=== PATIENT | female | born 1970 | race Caucasian/White ===

== ENCOUNTER 2022-05-02 01:06 | Emergency (ER) | payer SELFPAY ==
[2022-05-02 01:36] LABS: #Basophils 0.1 thou/uL (0.0-0.2); #Eosinphils 0.2 thou/uL (0.0-0.7); #Lymphocytes 2.2 thou/uL (1.20-3.40); #Monocytes 0.9 thou/uL (0.11-0.59); %Basophils 0.6 % (0.0-1.0); %Eosinophils 1.5 % (0.0-10.0); %Lymphocytes 21.5 % (21.0-51.0); %Monocytes 8.5 % (0.0-10.0); %Neutrophils 67.9 % (42.0-75.0); Hemoglobin 16.1 g/dL (12.0-16.0); Mean Corpuscular HGB CONC 33.5 g/dL (32.0-36.0); Mean Corpuscular Hemoglobin 28.9 pg (27.0-31.0); Mean Corpuscular Volume 86.3 fL (78.0-98.0); Mean Platelet Volume 7.1 fL (7.4-10.4); Platelet Count 320 thou/uL (130-400); RBC Distribution Width 12.9 % (11.5-14.5); Red Blood Cell (RBC) Count 5.58 mill/uL (4.20-5.40); White Blood Cell (WBC) Count 10.3 thou/uL (4.8-10.8)
[2022-05-02 01:57] LABS: ALT (SGPT) 24 U/L (8-55); AST (SGOT) 21 U/L (5-34); Albumin 4.9 g/dL (3.5-5.0); Alkaline Phosphatase 65 U/L (40-110); Anion Gap 14 mmol/L (10-20); BUN (Urea Nitrogen) 27 mg/dL (9.8-20.1); Bilirubin, Total 0.4 mg/dL (0.2-1.2); Calc. Creatinine Clearance 0 mL/min (70-130); Carbon Dioxide 26 mmol/L (22-29); Chloride 102 mmol/L (98-107); Estimated GFR 38; Globulin 3.3 g/dL (2.4-3.5); Glucose 108 mg/dL (70-105); Potassium 3.3 mmol/L (3.5-5.1); Protein, Total 8.2 g/dL (6.0-8.3); Sodium 139 mmol/L (136-145)
[2022-05-02] MEDS ORDERED: Acetaminophen 500 MG TAB ONE (04:25)
[2022-05-02] MEDS ORDERED: Aspirin Chewable 81 MG TAB ONE (04:25)
[2022-05-02 05:05] LABS: Troponin I 0.019 ng/mL (< 0.028)
== END 2022-05-02 05:50 | disposition home or self-care (01) ==
LOC: ERS 01:06
DX: R07.89 Other chest pain (principal); R11.0 Nausea; I10 Essential (primary) hypertension; Z79.899 Other long term (current) drug therapy
CPT/HCPCS: 36415; 71045; 80053; 84484; 85025; 93005

== ENCOUNTER 2023-07-14 00:08 | Observation (INO) | payer SELFPAY ==
[2023-07-14] MEDS ORDERED: Morphine 4 MG/ML VIAL ONE ×2 (00:44→01:44)
[2023-07-14] MEDS ORDERED: Ondansetron PF 4 MG/2 ML Vial ONE ×2 (00:44→11:09)
[2023-07-14 00:45] LABS: #Basophils 0.1 thou/uL (0.0-0.2); #Eosinphils 0.3 thou/uL (0.0-0.7); #Monocytes 0.8 thou/uL (0.11-0.59); #Neutrophils 5.1 thou/uL (1.40-6.50); %Eosinophils 2.9 % (0.0-10.0); %Monocytes 8.1 % (0.0-10.0); %Neutrophils 55.4 % (42.0-75.0); Hematocrit 45.7 % (36.0-47.0); Hemoglobin 15.2 g/dL (12.0-16.0); Mean Corpuscular HGB CONC 33.3 g/dL (32.0-36.0); Mean Corpuscular Hemoglobin 28.7 pg (27.0-31.0); Mean Corpuscular Volume 86.4 fl (78.0-98.0); Mean Platelet Volume 9.4 fL (7.4-10.4); Platelet Count 324 10x3/uL (130-400); RBC Distribution Width 13.2 % (11.5-14.5); Red Blood Cell (RBC) Count 5.29 mill/uL (4.20-5.40); White Blood Cell (WBC) Count 9.3 10x3/uL (4.8-10.8)
[2023-07-14 01:59] LABS: Albumin 3.9 g/dL (3.5-5.0)
[2023-07-14 02:01] LABS: Calcium 8.8 mg/dL (7.8-10.44); Chloride 105 mmol/L (98-107); Potassium 4.3 mmol/L (3.5-5.1); Sodium 138 mmol/L (136-145)
[2023-07-14 02:02] LABS: Globulin 2.9 g/dL (2.4-3.5); Glucose 100 mg/dL (70-105); Protein, Total 6.8 g/dL (6.0-8.3)
[2023-07-14 02:03] LABS: Anion Gap 13 mmol/L (10-20); Carbon Dioxide 24 mmol/L (22-29)
[2023-07-14 02:04] LABS: Bilirubin, Total 0.3 mg/dL (0.2-1.2)
[2023-07-14 02:05] LABS: Alkaline Phosphatase 58 U/L (40-110)
[2023-07-14 02:06] LABS: BUN (Urea Nitrogen) 20 mg/dL (9.8-20.1); Calc. Creatinine Clearance 0 mL/min (70-130); Estimated GFR 61
[2023-07-14 02:07] LABS: AST (SGOT) 15 U/L (5-34)
[2023-07-14 02:08] LABS: ALT (SGPT) 15 U/L (8-55); Lipase 27 U/L (8-78)
[2023-07-14] MEDS ORDERED: Morphine 2 MG/ML VIAL SLOW IVP PRN (04:44)
[2023-07-14] MEDS ORDERED: Ondansetron PF 4 MG/2 ML Vial IVP PRN (04:44)
[2023-07-14] MEDS ORDERED: traMADol HCl 50 MG TAB PO PRN (04:47)
[2023-07-14] MEDS ORDERED: hydrALAZINE 20 MG/ML VIAL SLOW IVP PRN (05:03)
[2023-07-14 05:28] LABS: INR-International Normal Ratio 0.9; PTT 34.9 sec (22.9-36.1); Prothrombin Time 12.1 sec (12.0-14.7)
[2023-07-14] MEDS: Acetaminophen 500 MG TAB PO SCH ×3 (06:05→17:26)
[2023-07-14] MEDS: traMADol HCl 50 MG TAB PO SCH ×3 (06:06→17:25)
[2023-07-14 06:17] VITALS: BMI 33.6
[2023-07-14] MEDS ORDERED: LevoFLOXacin 500 mg/D5W 500 MG in Premix 1 BAG IVPB SCH (09:15)
[2023-07-14] MEDS ORDERED: LevoFLOXacin 500 mg/D5W 100 ML BAG ONE (09:18)
[2023-07-14] MEDS: Famotidine/PF 20 mg/2ml Vial SLOW IVP SCH ×2 (10:00→21:20)
[2023-07-14] MEDS ORDERED: Rocuronium Bromide 10 MG/ML (10ML VIAL) ONE ×2 (10:57→11:09)
[2023-07-14] MEDS ORDERED: fentaNYL PF 100 MCG/2 ML SYRINGE ONE (10:57)
[2023-07-14] MEDS ORDERED: Dexamethasone 20 MG/5 ML VIAL ONE ×2 (10:57→11:09)
[2023-07-14] MEDS ORDERED: SUGAMMADEX SODIUM 200 MG/2 ML VIAL ONE (10:58)
[2023-07-14] MEDS ORDERED: PROPOFOL 20 ML ONE (10:58)
[2023-07-14] MEDS ORDERED: Ketorolac Tromethamine 30 MG/ML VIAL ONE ×2 (11:09→12:28)
[2023-07-14] MEDS ORDERED: PROPOFOL 200 MG/20 ML VIAL ONE (11:09)
[2023-07-14] MEDS ORDERED: Lidocaine 1% PF 5 ML VIAL ONE (11:09)
[2023-07-14] MEDS ORDERED: Ibuprofen 200 MG TAB PO PRN (11:19)
[2023-07-14] MEDS ORDERED: EPINEPHrine 1 MG/ML VIAL ONE (11:27)
[2023-07-14] MEDS ORDERED: Bupivacaine 0.25% HCL 30 ML VIAL ONE (11:27)
[2023-07-14] MEDS ORDERED: fentaNYL 50 mcg/mL 1 mL Vial ONE ×3 (13:19→13:44)
[2023-07-14] MEDS: Morphine 4 MG/ML VIAL SLOW IVP PRN ×2 (14:56→21:26)
[2023-07-14] MEDS: Sodium Chloride 0.9% 1,000 ML IV SCH ×3 (14:58→21:51)
[2023-07-14] MEDS ORDERED: FLU VACC QS2023-24(6MOS UP)/PF 60 MCG/0.5 ML SYRINGE IM ONE (16:45)
[2023-07-15] MEDS: Acetaminophen 500 MG TAB PO SCH ×3 (00:06→11:08)
[2023-07-15] MEDS: traMADol HCl 50 MG TAB PO SCH ×3 (00:07→11:08)
[2023-07-15] MEDS: Sodium Chloride 0.9% 1,000 ML IV SCH (03:46)
[2023-07-15 08:03] VITALS: BP 135/86; TEMP 97.7
[2023-07-15] MEDS: Famotidine/PF 20 mg/2ml Vial SLOW IVP SCH (08:23)
== END 2023-07-15 11:50 | disposition home or self-care (01) ==
LOC: ERS 00:08 → SJJU 04:46
PROVIDERS: ADMIT Surgery; ATTEND Surgery
PROC: 0FT44ZZ Resection of Gallbladder, Percutaneous Endoscopic Approach (ICD-10-PCS; principal; 2023-07-14)
DX: K80.12 Calculus of gallbladder with acute and chronic cholecystitis without obstruction (principal); I10 Essential (primary) hypertension; Z87.442 Personal history of urinary calculi; Z90.710 Acquired absence of both cervix and uterus; Z90.49 Acquired absence of other specified parts of digestive tract; Z90.89 Acquired absence of other organs
CPT/HCPCS: 36415; 76705; 80053; 83690; 85025; 85610; 85730; 86850; 86900; 86901; 88304; 93005; 96361; 96374; 96375; 96376; C1889; G0378; J0171; J1100; J1885; J1956; J2270; J2405; J2704; J3010; J7050; S0020; S0028